=== PATIENT | male | born 1965 | race Caucasian/White ===

== ENCOUNTER 2021-06-04 10:39 | Outpatient (CLI) | payer BC | END 2021-06-04 10:40 | disposition home or self-care (01) | LOC: CSHCT 10:39 | PROVIDERS: ATTEND Psychiatry & Neurology Neurology | DX: R42 Dizziness and giddiness (principal) | CPT/HCPCS: 70450 ==

== ENCOUNTER 2022-12-15 12:18 | Outpatient (CLI) | payer BC | END 2022-12-15 12:19 | disposition home or self-care (01) | LOC: CSHCT 12:18 | PROVIDERS: ATTEND Psychiatry & Neurology Neurology | DX: R20.0 Anesthesia of skin (principal) | CPT/HCPCS: 70450 ==

== ENCOUNTER 2023-05-11 14:45 | Outpatient (CLI) | payer BC, MEDICARE ==
[~2023-05-11 14:45] MED LIST: Iopamidol 300 61% 100 ML VIAL FS ONE
== END 2023-05-11 14:46 | disposition home or self-care (01) ==
LOC: CSHCT 14:45
PROVIDERS: ATTEND Specialist
DX: R59.0 Localized enlarged lymph nodes (principal)
CPT/HCPCS: 70492

== ENCOUNTER 2024-10-25 08:19 | Outpatient (CLI) | payer MEDICARE, BC | END 2024-10-25 08:20 | disposition home or self-care (01) | LOC: CSHSLEEP 08:19 | PROVIDERS: ATTEND Internal Medicine | DX: G47.33 Obstructive sleep apnea (adult) (pediatric) (principal); G25.89 Other specified extrapyramidal and movement disorders; R06.83 Snoring; E66.9 Obesity, unspecified; Z68.42 Body mass index [BMI] 45.0-49.9, adult | CPT/HCPCS: 95810 ==

== ENCOUNTER 2024-10-26 08:30 | Outpatient (CLI) | payer MEDICARE, BC | END 2024-10-26 08:31 | disposition home or self-care (01) | LOC: CSHSLEEP 08:30 | PROVIDERS: ATTEND Internal Medicine | DX: G47.33 Obstructive sleep apnea (adult) (pediatric) (principal); G25.89 Other specified extrapyramidal and movement disorders; R06.83 Snoring; E66.9 Obesity, unspecified; Z68.42 Body mass index [BMI] 45.0-49.9, adult | CPT/HCPCS: 95805 ==